=== PATIENT | male | born 1965 | race Two or more races ===

== ENCOUNTER → 2017-03-23 | Emergency (ER) | payer SELFPAY ==
[~2017-03-23] VITALS: Ht 177.8 cm; Wt 83.9 kg
[2017-03-23 17:11] VITALS: BP 129/81
--- NOTE | 2017-03-23 22:51 | Emergency Room Report ---
History of Present Illness General Chief Complaint: Alcohol Intoxication Source: Patient Present Illness HPI The patient is a 52-year-old male presenting for suppose it alcohol intoxication. The patient is being belligerent at this time and is not answering questions appropriately Allergies: Coded Allergies: No Known Allergies (Unverified , 03/23/17) Patient History Past Medical History: see triage record Pertinent Family History: none Reviewed Nursing Documentation: PMH: Agreed, PSxH: Agreed Nursing Documentation-PMH Past Medical History: No Stated History Review of Systems All Other Systems: limited Physical Exam Vital Signs Date Time Temp Pulse Resp B/P (MAP) Pulse Ox O2 Delivery O2 Flow Rate FiO2 03/23/17 17:11 97.9 80 20 129/81 100 Room Air Medical Decision Making PA Attestation Dr. Meade is my supervising physician. Patient management was discussed with my supervising physician Diagnostic Impression: Primary Impression: Acute alcoholic intoxication ER Course The patient is a 52-year-old male presenting for supposes alcohol intoxication DDx considered but not limited to: acute alcohol intoxication, hepatic encephalopathy, drug overdose, hypoglycemia, psychosis Physical exam: Upon going to room to conduct exam, the patient was not in room. It appears he has eloped at this time Last Vital Signs Date Time Temp Pulse Resp B/P (MAP) Pulse Ox O2 Delivery O2 Flow Rate FiO2 03/23/17 17:11 97.9 80 20 129/81 100 Room Air Status: improved Disposition: ELOPED DEMOND MEZA Mar 23, 2017 22:51
== END | disposition home or self-care (01) ==
LOC: EDBD 17:16 → EMR 17:40
DX: F10.129 Alcohol abuse with intoxication, unspecified (principal); F17.200 Nicotine dependence, unspecified, uncomplicated
CPT/HCPCS: 99282

== ENCOUNTER 2019-02-28 10:14 | Emergency (ER) | payer MEDICAID ==
[~2019-02-28] VITALS: Ht 185.4 cm; Wt 90.7 kg
[2019-02-28 10:12] VITALS: BP 97/62
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
--- NOTE | 2019-02-28 11:05 | NUR ---
ED Nurse Note: ERMD at bedside assessing pt.
[2019-02-28 11:52] LABS: BASOPHILS % (AUTO) 2.2 % (0.0-2.0); EOSINOPHILS % (AUTO) 0.6 % (0.0-3.0); HEMATOCRIT 41.7 % (42.0-52.0); HEMOGLOBIN 14.1 G/DL (14.2-18.0); LYMPHOCYTES % (AUTO) 33.7 % (20.0-45.0); MEAN CORPUSCULAR VOLUME 96 FL (80-99); MONOCYTES % (AUTO) 11.1 % (1.0-10.0); NEUTROPHILS % (AUTO) 52.4 % (45.0-75.0); PLATELET COUNT 221 K/UL (150-450); RED BLOOD COUNT 4.36 M/UL (4.70-6.10); RED CELL DISTRIBUTION WIDTH 14.2 % (11.6-14.8); WHITE BLOOD COUNT 8.4 K/UL (4.8-10.8)
[2019-02-28 12:06] LABS: ANION GAP 13 mmol/L (5-15); BLOOD UREA NITROGEN 11 mg/dL (7-18); CALCIUM 8.6 MG/DL (8.5-10.1); CARBON DIOXIDE 22 MMOL/L (21-32); CHLORIDE 107 MMOL/L (98-107); CREATININE 0.7 MG/DL (0.55-1.30); POTASSIUM 4.1 MMOL/L (3.5-5.1); SODIUM 142 MMOL/L (136-145)
[2019-02-28 12:12] VITALS: BP 101/78
[2019-02-28 12:12] LABS: ALANINE AMINOTRANSFERASE 96 U/L (12-78); ALBUMIN 3.6 G/DL (3.4-5.0); ALBUMIN/GLOBULIN RATIO 0.9 (1.0-2.7); ALKALINE PHOSPHATASE 85 U/L (46-116); ASPARTATE AMINO TRANSFERASE 81 U/L (15-37); BILIRUBIN,TOTAL 0.4 MG/DL (0.2-1.0)
[2019-02-28 13:07] LABS: APPEARANCE,URINE CLEAR; BILIRUBIN, URINE NEGATIVE (NEGATIVE); COLOR,URINE PALE YELLOW; GLUCOSE, URINE (UA) NEGATIVE (NEGATIVE); KETONES,URINE NEGATIVE (NEGATIVE); LEUKOCYTE ESTERASE ,URINE NEGATIVE (NEGATIVE); NITRITE,URINE NEGATIVE (NEGATIVE); PH,URINE 5 (4.5-8.0); PROTEIN,URINE NEGATIVE (NEGATIVE); UROBILINOGEN,URINE NORMAL MG/DL (0.0-1.0)
[2019-02-28 14:12] VITALS: BP 115/87
--- NOTE | 2019-02-28 14:30 | NUR ---
ED Nurse Note: pt got up and walked in the room but unsteady gait. ERMD made aware.
--- NOTE | 2019-02-28 14:32 | Emergency Room Report ---
History of Present Illness General Chief Complaint: Alcohol Intoxication Source: Patient, EMS Present Illness HPI 53-year-old male came in with altered mental status found to have alcohol in breath. Patient was picked up by EMS for lying on the ground. No known trauma as however unable to obtain history from patient. History is limited due to mental status changes likely secondary to alcohol intoxication Allergies: Coded Allergies: No Known Allergies (Unverified , 03/23/17) Patient History Limited by: medical condition Nursing Documentation-[facility] Past Medical History: No Stated History Review of Systems All Other Systems: limited - Limited due to alcohol intoxication and mental status changes Physical Exam Vital Signs Date Time Temp Pulse Resp B/P (MAP) Pulse Ox O2 Delivery O2 Flow Rate FiO2 02/28/19 10:05 98.6 85 20 97/62 (74) 98 Room Air Sp02 EP Interpretation: reviewed General Appearance: well appearing, no apparent distress, non-toxic, lethargic - Alcohol on breath Head: normocephalic, atraumatic Eyes: bilateral eye normal inspection ENT: hearing grossly normal, EOM grossly intact, moist mucus membranes Neck: supple Respiratory: lungs clear, normal breath sounds, no respiratory distress, speaking full sentences Cardiovascular #1: regular rate, rhythm, normal capillary refill Cardiovascular #2: 2+ radial (R), 2+ radial (L) Gastrointestinal: non tender, soft, no mass, non-distended Rectal: deferred Musculoskeletal: moves extm spontaneously, no lower extremity edema Neurologic: grossly normal, other - Lethargic Psychiatric: mood/affect normal Skin: warm/dry, normal turgor Medical Decision Making ER Course 53-year-old male brought in by EMS for mental status changes, lethargy likely secondary to alcohol intoxication. Found to have no signs of trauma. Alcohol on breath. Will perform all lab testing as patient unable to give reliable history. Laboratory Tests Test 02/28/19 11:30 02/28/19 12:30 White Blood Count 8.4 K/UL (4.8-10.8) Red Blood Count 4.36 M/UL (4.70-6.10) L Hemoglobin 14.1 G/DL (14.2-18.0) L Hematocrit 41.7 % (42.0-52.0) L Mean Corpuscular Volume 96 FL (80-99) Mean Corpuscular Hemoglobin 32.4 PG (27.0-31.0) H Mean Corpuscular Hemoglobin Concent 33.9 G/DL (32.0-36.0) Red Cell Distribution Width 14.2 % (11.6-14.8) Platelet Count 221 K/UL (150-450) Mean Platelet Volume 6.3 FL (6.5-10.1) L Neutrophils (%) (Auto) 52.4 % (45.0-75.0) Lymphocytes (%) (Auto) 33.7 % (20.0-45.0) Monocytes (%) (Auto) 11.1 % (1.0-10.0) H Eosinophils (%) (Auto) 0.6 % (0.0-3.0) Basophils (%) (Auto) 2.2 % (0.0-2.0) H Sodium Level 142 MMOL/L (136-145) Potassium Level 4.1 MMOL/L (3.5-5.1) Chloride Level 107 MMOL/L (98-107) Carbon Dioxide Level 22 MMOL/L (21-32) Anion Gap 13 mmol/L (5-15) Blood Urea Nitrogen 11 mg/dL (7-18) Creatinine 0.7 MG/DL (0.55-1.30) Estimate Glomerular Filtration Rate > 60 mL/min (>60) Glucose Level 92 MG/DL (74-106) Calcium Level 8.6 MG/DL (8.5-10.1) Total Bilirubin 0.4 MG/DL (0.2-1.0) Aspartate Amino Transferase (AST) 81 U/L (15-37) H Alanine Aminotransferase (ALT) 96 U/L (12-78) H Alkaline Phosphatase 85 U/L (46-116) Total Protein 7.4 G/DL (6.4-8.2) Albumin 3.6 G/DL (3.4-5.0) Globulin 3.8 g/dL Albumin/Globulin Ratio 0.9 (1.0-2.7) L Salicylates Level 1.0 ug/mL (2.8-20) L Acetaminophen Level < 2 MCG/ML (10-30) L Serum Alcohol 366 mg/dL Urine Color Pale yellow Urine Appearance Clear Urine pH 5 (4.5-8.0) Urine Specific [place] 1.015 (1.005-1.035) Urine Protein Negative (NEGATIVE) Urine Glucose (UA) Negative (NEGATIVE) Urine Ketones Negative (NEGATIVE) Urine Blood Negative (NEGATIVE) Urine Nitrite Negative (NEGATIVE) Urine Bilirubin Negative (NEGATIVE) Urine Urobilinogen Normal MG/DL (0.0-1.0) Urine Leukocyte Esterase Negative (NEGATIVE) Urine Opiates Screen Negative (NEGATIVE) Urine Barbiturates Screen Negative (NEGATIVE) Phencyclidine (PCP) Screen Negative (NEGATIVE) Urine Amphetamines Screen Negative (NEGATIVE) Urine Benzodiazepines Screen Positive (NEGATIVE) H Urine Cocaine Screen Negative (NEGATIVE) Urine Marijuana (THC) Screen Negative (NEGATIVE) Last Vital Signs Date Time Temp Pulse Resp B/P (MAP) Pulse Ox O2 Delivery O2 Flow Rate FiO2 02/28/19 14:12 98.4 80 20 115/87 100 Room Air Signed Out To: Dr Messer Referrals: NOT CHOSEN IPA/,REFERRING (PCP) Yvon Guerrero M.D. Feb 28, 2019 14:32
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
--- NOTE | 2019-02-28 18:00 | NUR ---
ED Nurse Note: Pt cleared by health care Provider for discharge. DC instructions was given and explained to pt and verbalized understanding of teachings. pt was wearing short sleeve shirts, a winter jacket provided. sandwich and juice provided. 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 All medical deviecs such as ID band removed. Pt is AAO x4, ambulatory and left with all personal belongings.
[2019-02-28 18:10] VITALS: BP 121/74
== END 2019-02-28 18:00 | disposition home or self-care (01) ==
LOC: EDBD 10:14 → EMR 10:30
DX: R41.82 Altered mental status, unspecified (principal); F10.129 Alcohol abuse with intoxication, unspecified
CPT/HCPCS: 36415; 80053; 80307; 81003; 85025; 96360; G0480; G0481; Z7502; 99284

== ENCOUNTER 2019-09-19 17:41 | Emergency (ER) | payer MEDICAID, OTHER ==
[~2019-09-19] VITALS: Ht 188 cm; Wt 99.8 kg
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
[2019-09-19 18:07] VITALS: BP 118/73
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
[2019-09-19 18:59] LABS: BASOPHILS % (AUTO) 1.6 % (0.0-2.0); EOSINOPHILS % (AUTO) 0.4 % (0.0-3.0); HEMATOCRIT 39.2 % (42.0-52.0); HEMOGLOBIN 12.8 G/DL (14.2-18.0); LYMPHOCYTES % (AUTO) 37.5 % (20.0-45.0); MEAN CORPUSCULAR VOLUME 98 FL (80-99); MONOCYTES % (AUTO) 7.3 % (1.0-10.0); NEUTROPHILS % (AUTO) 53.3 % (45.0-75.0); PLATELET COUNT 212 K/UL (150-450); WHITE BLOOD COUNT 8.2 K/UL (4.8-10.8)
[2019-09-19 19:00] LABS: ANION GAP 11 mmol/L (5-15); BLOOD UREA NITROGEN 6 mg/dL (7-18); CALCIUM 8.5 MG/DL (8.5-10.1); CARBON DIOXIDE 26 MMOL/L (21-32); CHLORIDE 107 MMOL/L (98-107); CREATININE 0.7 MG/DL (0.55-1.30); POTASSIUM 3.8 MMOL/L (3.5-5.1); SODIUM 144 MMOL/L (136-145)
--- NOTE | 2019-09-19 19:02 | NUR ---
ED Nurse Note: Report given to OLEG Barbosa. Patient sleeping in bed, bed in semi-calloway position. IV to right AC remained intact and IV fluids infusing.
--- NOTE | 2019-09-19 19:03 | NUR ---
ED Nurse Note: Received report from Светлана DEJESUS.
[2019-09-19 19:05] LABS: ALANINE AMINOTRANSFERASE 47 U/L (12-78); ALBUMIN 3.3 G/DL (3.4-5.0); ALBUMIN/GLOBULIN RATIO 0.8 (1.0-2.7); ALKALINE PHOSPHATASE 81 U/L (46-116); ASPARTATE AMINO TRANSFERASE 66 U/L (15-37); BILIRUBIN,TOTAL 0.3 MG/DL (0.2-1.0)
--- NOTE | 2019-09-19 19:06 | Emergency Room Report ---
History of Present Illness General Chief Complaint: Multiple Trauma/Fall Source: Patient (Ana Alejandro) Present Illness HPI 54-year-old male with history of alcohol abuse brought in by paramedics due to left shoulder pain. Patient was seen at [facility] yesterday for the same issue however eloped. Unknown of the status of the shoulder injury. Patient appears to be very intoxicated. Also has a history of diabetes which he denies. Appears to be afebrile vital signs are within normal limits. Rates the pain 5-10 without radiation. Reports that he can move his arm. Patient is not a good historian. 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: No (Ana Alejandro) Patient History Past Medical History: see triage record Past Surgical History: unable to obtain Pertinent Family History: unable to obtain Social History: Reports: alcohol use Immunizations: UTD Reviewed Nursing Documentation: PMH: Agreed; PSxH: Agreed (Ana Alejandro) Nursing Documentation-PMH Hx Diabetes: Yes History Of Psychiatric Problem: Yes Hx Seizures: Yes (Ana Alejandro) Review of Systems All Other Systems: negative except mentioned in HPI (Ana Alejandro) Physical Exam Vital Signs Date Time Temp Pulse Resp B/P (MAP) Pulse Ox O2 Delivery O2 Flow Rate FiO2 09/19/19 17:35 98.1 78 18 126/72 (90) 98 Room Air Sp02 EP Interpretation: reviewed, normal General Appearance: other - Intoxicated Head: normocephalic, atraumatic Eyes: bilateral eye normal inspection, bilateral eye PERRL ENT: hearing grossly normal, normal pharynx, no angioedema, normal voice Neck: full range of motion, supple/symm/no masses Respiratory: lungs clear Cardiovascular #1: regular rate, rhythm, no edema Cardiovascular #2: 2+ carotid (R), 2+ carotid (L), 2+ radial (R), 2+ radial (L) Gastrointestinal: normal bowel sounds, non tender, soft, non-distended, no guarding, no rebound Genitourinary: no CVA tenderness Musculoskeletal: back normal, tender - Left clavicle, other - No impingement sign noted Neurologic: alert, motor strength/tone normal, oriented x3, sensory intact, responsive, speech normal Psychiatric: other - Intoxicated Skin: normal inspection Lymphatic: no adenopathy (Ana Alejandro) Medical Decision Making PA Attestation All diagnoses and treatment plans were reviewed and discussed with my supervising physician Dr. Pinedo (Ana Alejandro) Diagnostic Impression: Primary Impression: Alcohol intoxication Additional Impression: Clavicle fracture ER Course 54-year-old male with history of alcohol abuse brought in by paramedics due to left shoulder pain. Patient was seen at [facility] yesterday for the same issue however eloped. Unknown of the status of the shoulder injury. Patient appears to be very intoxicated. Also has a history of diabetes which he denies. Appears to be afebrile vital signs are within normal limits. Rates the pain 5-10 without radiation. Reports that he can move his arm. Patient is not a good historian. Ddx considered but are not limited to: Alcohol intoxication with altered level of consciousness, alcohol intoxication causing pancreatitis, alcohol abuse, multi drug use and alcohol intoxication Vital signs: are WNL, pt. is afebrile H&PE are most consistent with: Alcohol intoxication, left clavicle fracture ORDERS: Left shoulder x-ray, CBC, CMP, UA, tox pain, EtOH level, ibuprofen, ER intervention: NS bolus, Zofran, Pepcid, Toradol, clavicle splint applied DISCHARGE: At this time pt. is stable for d/c to home. Will provide printed patient care instructions, and any necessary prescriptions. Care plan and follow up instructions have been discussed with the patient prior to discharge. Patient to, take medication as directed, follow-up with logistics management specialist , if worsening symptoms return to the emergency room (Ana Alejandro) Other X-Ray Diagnostic Results Other X-Ray Diagnostic Results : X-Ray ordered: left shoulder # of Views/Limited Vs Complete: 3 View Indication: Pain EP Interpretation: Yes PA Xray: Interpretation reviewed, by supervising MD, and agrees with findings. Interpretation: other - clavicle fx Impression: Other - left clavicle fx Electronically Signed by: Ana GARCIA Scribe Text IMPRESSION: 1. Mild comminuted nondisplaced distal clavicular fracture. 2. Otherwise unremarkable study. (Ana Alejandro) Other X-Ray Diagnostic Results : Electronically Signed by: Sky Rodrigez documentation of Xray reviewed by me and is accurate, Eulalio Pinedo MD (Eulalio Pinedo MD) Last Vital Signs Date Time Temp Pulse Resp B/P (MAP) Pulse Ox O2 Delivery O2 Flow Rate FiO2 09/19/19 18:07 76 15 118/73 99 Room Air 09/19/19 17:35 98.1 (Ana Alejandro) Disposition: HOME, SELF-CARE Condition: Stable Scripts Ibuprofen* (MOTRIN*) 600 Mg Tablet 600 MG ORAL Q8H PRN for FOR PAIN, #20 TAB 0 Refills Prov: Ana Alejandro 09/19/19 Referrals: [facility],REFERRI (PCP) Patient Instructions: Alcohol Intoxication, [id number], Clavicle Fracture Additional Instructions: Take medication as directed, follow-up with primary care provider, you need to be seen by logistics management specialist, if worsening symptoms return to the emergency room Ana Alejandro Sep 19, 2019 19:06 Eulalio Pinedo MD Sep 20, 2019 03:32
--- NOTE | 2019-09-19 19:08 | NUR ---
ED Nurse Note: Urine specimen collected and sent to lab. Snacks provided by request.
[2019-09-19 19:18] LABS: APPEARANCE,URINE CLEAR; BILIRUBIN, URINE NEGATIVE (NEGATIVE); COLOR,URINE PALE YELLOW; GLUCOSE, URINE (UA) NEGATIVE (NEGATIVE); KETONES,URINE NEGATIVE (NEGATIVE); LEUKOCYTE ESTERASE ,URINE NEGATIVE (NEGATIVE); NITRITE,URINE NEGATIVE (NEGATIVE); PH,URINE 5 (4.5-8.0); PROTEIN,URINE NEGATIVE (NEGATIVE); UROBILINOGEN,URINE NORMAL MG/DL (0.0-1.0)
[2019-09-19] MEDS ORDERED: IBUPROFEN600 M1 ORAL (19:40)
[2019-09-19 20:27] VITALS: BP 125/76
== END 2019-09-19 20:27 | disposition home or self-care (01) ==
LOC: EDBD 17:41 → EMR 17:57
DX: S42.035A Nondisplaced fracture of lateral end of left clavicle, initial encounter for closed fracture (principal); F10.129 Alcohol abuse with intoxication, unspecified; E11.9 Type 2 diabetes mellitus without complications; G40.909 Epilepsy, unspecified, not intractable, without status epilepticus
CPT/HCPCS: 36415; 73030; 80053; 80307; 81003; 85025; 96361; 96374; G0480; J7030; S0028; Z7502; 99284; J2405

== ENCOUNTER 2019-09-21 12:07 | Emergency (ER) | payer OTHER ==
[~2019-09-21] VITALS: Ht 172.7 cm; Wt 81.6 kg
[~2019-09-21 12:07] MED LIST: IBUPROFEN600 M1 ORAL
[2019-09-21 12:14] VITALS: BP 121/78
--- NOTE | 2019-09-21 12:15 | NUR ---
ED Nurse Note: Patient was brought in by ambulance due to left shoulder pain/ ETOH; patient is homeless, asking for food. Patient presented with strong smell of alcohol, has unsteady gait, AAO x3, VSS at this time, patient has slured speech, keep asking for food.
--- NOTE | 2019-09-21 12:27 | Emergency Room Report ---
History of Present Illness General Chief Complaint: Pain Source: Patient, Medical Record, EMS Present Illness HPI Disclaimer: Please note that this report is being documented using [employer] technology. This can lead to erroneous entry secondary to incorrect interpretation by the dictating instrument. HPI: 54-year-old male history of alcohol abuse and recent clavicle fracture presents for evaluation of alcohol intoxication. Brought in from the streets by EMS. Patient seen several times in our emergency department similar complaints. Diagnosed with a mildly comminuted left clavicle fracture from a fall several days ago. He has been wearing a sling but is not yet filled his prescriptions. He has been seen at multiple hospitals for similar presentations. He denies reinjury, fall, vomiting, abdominal pain. He admits to drinking today. Denies other drug use. Denies other complaints. He is asking for something to eat. PMH: Alcohol abuse, DM PSH: Reviewed Allergies: Reviewed Social Hx: Alcohol abuse Allergies: Coded Allergies: No Known Allergies (Unverified , 03/23/17) COVID-19 Screening Contact w/high risk pt: No Recent Travel to affected area: No Experienced COVID-19 symptoms?: No COVID-19 Testing performed TOUCH UP CARVER: No Nursing Documentation-PMH Hx Cardiac Problems: No Hx Hypertension: No Hx Pacemaker: No Hx Asthma: No Hx COPD: No Hx Diabetes: No Hx Cancer: No Hx Gastrointestinal Problems: Yes Hx Dialysis: No History Of Psychiatric Problem: No Hx Neurological Problems: No Hx Cerebrovascular Accident: No Hx Seizures: Yes Review of Systems All Other Systems: negative except mentioned in HPI Physical Exam Vital Signs Date Time Temp Pulse Resp B/P (MAP) Pulse Ox O2 Delivery O2 Flow Rate FiO2 09/21/19 12:10 97.3 97 16 121/78 (92) 97 Room Air General: Awake and alert, appears intoxicated HEENT: NC/AT. Abrasions over the face healing. No acute lacerations or abrasions. EOMI. Resp: Normal work of breathing Skin facial abrasions are healing appropriately. No acute findings. MSK: Normal tone and bulk. Moving all extremities. Wearing sling left side. Tenderness palpation of the left clavicle and shoulder. Range of motion appears preserved. Neuro: Awake and alert. Mentating appropriately but appears intoxicated Medical Decision Making Diagnostic Impression: Primary Impression: Acute alcoholic intoxication Additional Impression: Clavicle fracture ER Course This is a 54-year-old male with a history of alcohol abuse presenting with alcohol intoxication complaining of persistent left shoulder pain. Patient is no acute distress and admits to alcohol use earlier today. No reinjury of the shoulder is reported and he is wearing a sling. He has not yet filled his medications from his prior ER visits. While out to metabolize in the emergency department provide food. His fingerstick is 73. Will be discharged once clinically sober. Thiamine and folic acid prescribed. Last Vital Signs Date Time Temp Pulse Resp B/P (MAP) Pulse Ox O2 Delivery O2 Flow Rate FiO2 09/21/19 12:14 97.3 16 121/78 97 Room Air 09/21/19 12:10 97 Disposition: HOME, SELF-CARE Condition: Stable Scripts Folic Acid* (FOLIC ACID*) 1 Mg Tablet 1 MG ORAL DAILY, #30 TAB Prov: Yaw Sanford MD 09/21/19 Thiamine Hcl* (VITAMIN B-1*) 100 Mg Tablet 100 MG ORAL DAILY, #30 TAB 0 Refills Prov: Yaw Sanford MD 09/21/19 Referrals: NON PHYSICIAN (PCP) Yaw Sanford MD Sep 21, 2019 12:27
[2019-09-21] MEDS ORDERED: VITAMIN B-1100 MG ORAL (12:28)
[2019-09-21] MEDS ORDERED: FOLIC ACID1 MG ORAL (12:28)
--- NOTE | 2019-09-21 12:34 | NUR ---
ED Nurse Note: lunch tray was provided
[2019-09-21 15:22] VITALS: BP 125/77
--- NOTE | 2019-09-21 15:23 | NUR ---
ED Nurse Note: Katelyn is sleeing, VSS at this time, NAD noted.
[2019-09-21 17:13] VITALS: BP 125/77
--- NOTE | 2019-09-21 17:13 | NUR ---
ED Nurse Note: Pt cleared by health care Provider for discharge. DC instructions/prescription was given and explained to pt and verbalized understanding of teachings. All medical deviecs such as ID band removed. Pt is AAO x4, ambulatory and left with all personal belongings.
== END 2019-09-21 17:13 | disposition home or self-care (01) ==
LOC: EDBD 12:07 → EMR 12:21
DX: F10.129 Alcohol abuse with intoxication, unspecified (principal); S42.002A Fracture of unspecified part of left clavicle, initial encounter for closed fracture; W19.XXXA Unspecified fall, initial encounter; Y92.9 Unspecified place or not applicable; E11.9 Type 2 diabetes mellitus without complications; G40.909 Epilepsy, unspecified, not intractable, without status epilepticus
CPT/HCPCS: 99282

== ENCOUNTER 2019-10-13 12:14 | Emergency (ER) | payer OTHER ==
[~2019-10-13] VITALS: Ht 172.7 cm; Wt 81.6 kg
[2019-10-13 12:12] VITALS: BP 134/76
[~2019-10-13 12:14] MED LIST changes: +FOLIC ACID1 MG ORAL; +VITAMIN B-1100 MG ORAL
--- NOTE | 2019-10-13 13:20 | Emergency Room Report ---
History of Present Illness General Chief Complaint: Pain Source: EMS Present Illness Allergies: Coded Allergies: No Known Allergies (Unverified , 03/23/17) COVID-19 Screening Contact w/high risk pt: No Recent Travel to affected area: No Experienced COVID-19 symptoms?: No COVID-19 Testing performed CLOTH PAINTER: No Nursing Documentation-PM Past Medical History: No History, Except For Hx Cardiac Problems: No - alcohol abuse Hx Hypertension: Yes Hx Pacemaker: No Hx Asthma: No Hx COPD: No Hx Diabetes: No Hx Cancer: No Hx Gastrointestinal Problems: Yes Hx Dialysis: No Hx Neurological Problems: No Hx Cerebrovascular Accident: No Hx Seizures: Yes Physical Exam Vital Signs Date Time Temp Pulse Resp B/P (MAP) Pulse Ox O2 Delivery O2 Flow Rate FiO2 10/13/19 12:12 98.1 76 15 134/76 (95) 99 Room Air Medical Decision Making ER Course Patient left prior to evaluation Last Vital Signs Date Time Temp Pulse Resp B/P (MAP) Pulse Ox O2 Delivery O2 Flow Rate FiO2 10/13/19 12:12 98.1 76 15 134/76 (95) 99 Room Air Disposition: LEFT W/OUT BEING SEEN Condition: Unknown Florentin Canada MD Oct 13, 2019 13:20
== END 2019-10-13 13:30 | disposition left against medical advice (07) ==
LOC: EDBD 12:14 → EMR 13:15
DX: Z53.21 Procedure and treatment not carried out due to patient leaving prior to being seen by health care provider (principal); I10 Essential (primary) hypertension